=== PATIENT | male | born 1995 | race Caucasian/White ===

== ENCOUNTER 2017-05-28 15:26 | Emergency (ER) | payer BC ==
[~2017-05-28] VITALS: Ht 162.6 cm; Wt 66.0 kg
[~2017-05-28 15:26] MED LIST: ACET325T45 PO; CLIN-72 PO; CLIN-73 PO; IBUP-1542 PO; ONDA4TAB8 PO; [UNRECOGNIZED DRUG - REMARK]
[2017-05-28 15:29] VITALS: Ht 162.6 cm; Wt 66.0 kg
[2017-05-28] MEDS ORDERED: IBUP-1542 PO (16:06)
[2017-05-28] MEDS ORDERED: CEPH-443 PO (16:06)
--- NOTE | 2017-05-28 16:27 | ERD ---
ER Documentation Chief Complaint Date/Time DATE: 05/28/17 TIME: 16:11 Chief Complaint possible spider bite on lt buttock HPI 21-year-old male complaining of pain in his left buttock. He first started noticing the pain this morning, and he thought he may have a "spider bite". Patient reports diarrhea for last 3 days, with 1-2 episodes of liquid, nonbloody diarrhea per day. Denies fever or chills. Denies abdominal pain or vomiting. Denies any prior medical history. Patient denies tobacco, alcohol, or illicit drug use. ROS All systems reviewed and are negative except as per history of present illness. Medications Home Meds Active Scripts Ibuprofen* (Motrin*) 600 Mg Tab, 600 MG PO Q6H Y for PAIN AND OR ELEVATED TEMP, #30 TAB Prov:MART XAVIER NP 05/28/17 Cephalexin* (Keflex*) 500 Mg Capsule, 500 MG PO QID for 5 Days, CAP Prov:MART XAVIER BINGO FLOATER 05/28/17 Ondansetron Hcl* (Zofran*) 4 Mg Tablet, 4 MG PO Q6H for NAUSEA AND/OR VOMITING, #30 TAB Prov:JEROME BAILEY PA-C 09/14/16 Ibuprofen* (Motrin*) 600 Mg Tab, 600 MG PO Q6, #30 TAB Prov:JEROME BAILEY PA-C 09/14/16 Clindamycin Hcl* (Clindamycin Hcl*) 300 Mg Capsule, 150 MG PO QID for 5 Days, CAP Prov:CLAUDY RIZZO 05/05/16 Acetaminophen* (Acetaminophen*) 325 Mg Tablet, 325 MG PO Q4H Y for PAIN AND OR ELEVATED TEMP, #30 TAB Prov:RAMON BECKER DO 05/05/16 Ibuprofen* (Motrin*) 600 Mg Tab, 600 MG PO Q8, #15 TAB Prov:RAMON BECKER DO 05/05/16 Clindamycin Hcl* (Clindamycin Hcl*) 150 Mg Capsule, 150 MG PO QID for 5 Days, CAP Prov:RAMON BECKER DO 05/05/16 Reported Medications [No Meds Taken'] No Conflict Check 03/12/11 Allergies Allergies: Coded Allergies: No Known Drug Allergy (Verified Allergy, Mild, 05/28/17) PMhx/Soc Medical and Surgical Hx: pt denies Surgical Hx History of Surgery: Yes (RIGHT HAND) Anesthesia Reaction: No Hx Neurological Disorder: No Hx Respiratory Disorders: No Hx Cardiac Disorders: No Hx Psychiatric Problems: No Hx Miscellaneous Medical Probl: No Hx Alcohol Use: No Hx Substance Use: No Hx Tobacco Use: No Smoking Status: Never smoker Physical Exam Vitals Vital Signs Date Time Temp Pulse Resp B/P Pulse Ox O2 Delivery O2 Flow Rate FiO2 05/28/17 15:29 99.3 112 16 131/84 98 Physical Exam General: Well-developed, well-nourished, conscious and coherent, in no distress Skin: Warm and dry without rash, good texture and turgor. There is a 1 cm area of induration with 2 cm area surrounding erythema noted on the left buttock. The lesion is not fluctuant, and tender to palpation. Head: Normocephalic without evidence of trauma Eyes: Sclera and conjunctivae normal; pupils equal, round, and reactive to light; extraocular movements are intact Neck: Supple without meningismus or adenopathy. Carotids are equal. Trachea midline. No bruits or JVD Chest: Normal AP diameter. Good expansion without retractions. Nontender. Lungs are clear to auscultate bilaterally with good tidal volume Heart: Regular rate and rhythm. No murmur, rub, or gallops heard Abdomen: Soft and nontender without masses, guarding, or rebound. Bowel sounds are active. No hepatosplenomegaly Extremities: Full range of motion. Good strength bilaterally. No clubbing, cyanosis, or edema. Peripheral pulses are intact. Sensation intact Neuro: Alert and oriented 4, GCS 15. Cranial nerves grossly intact. Motor and sensory exams nonfocal. Moves all extremities. Speech clear. Gait normal Procedures/MDM Well-appearing 21-year-old male presented to ED with cellulitis of his left buttock. I doubt it is a spider bite. The area is not fluctuant, I doubt abscess. Patient will be given prescription of Keflex and advised to apply hot compresses at home. Patient advised to return to eating 2 days for recheck. Although patient denies illicit drug use, he emanated strong marijuana odor. Patient appears well, stable for discharge and outpatient management. Medical decision making shared with patient and family. Education provided to patient and family. Patient and family expressed understanding of the plan. Medications on discharge: Keflex, ibuprofen. Follow-up: Primary care provider in 2-3 days or return to ED if worse. Departure Diagnosis: Primary Impression: Cellulitis Site of cellulitis: buttock Qualified Code: L03.317 - Cellulitis of buttock Condition: Good Patient Instructions: Cellulitis Referrals: COUNT INCLUDES THE [facility] YOU HAVE RECEIVED A MEDICAL SCREENING EXAM AND THE RESULTS INDICATE THAT YOU DO NOT HAVE A CONDITION THAT REQUIRES URGENT TREATMENT IN THE EMERGENCY DEPARTMENT. FURTHER EVALUATION AND TREATMENT OF YOUR CONDITION CAN WAIT UNTIL YOU ARE SEEN IN YOUR DOCTORS OFFICE WITHIN THE NEXT 1-2 DAYS. IT IS YOUR RESPONSIBILITY TO MAKE AN APPOINTMENT FOR FOLOW-UP CARE. IF YOU HAVE A PRIMARY DOCTOR --you should call your primary doctor and schedule an appointment IF YOU DO NOT HAVE A PRIMARY DOCTOR YOU CAN CALL OUR PHYSICIAN REFERRAL HOTLINE AT IF YOU CAN NOT AFFORD TO SEE A PHYSICIAN YOU CAN CHOSE FROM THE FOLLOWING [facility] [address] [facility] [address]. [facility] [address] [facility] [facility] [address] [facility]. [facility] [address] [facility] [facility] [address] [facility]. [facility]. [address] Additional Instructions: Return to this facility in 2 DAYS for a follow-up exam.Return sooner if your condition worsens. MART XAVIER NP May 28, 2017 16:21
== END 2017-05-28 17:26 | disposition home or self-care (01) ==
LOC: FTE 15:26
DX: L03.317 Cellulitis of buttock (principal)
CPT/HCPCS: 99283